=== PATIENT | male | born 1945 | race Caucasian/White ===

== ENCOUNTER → 2017-02-26 | Outpatient (CLI) | payer OTHER | LOC: CIMAGING 10:51 | PROVIDERS: ATTEND Internal Medicine | DX: M19.031 Primary osteoarthritis, right wrist (principal); M11.231 Other chondrocalcinosis, right wrist | CPT/HCPCS: 73110-PO ==

== ENCOUNTER → 2018-10-11 | Outpatient (CLI) | payer OTHER | LOC: CIMAGING 09:33 | PROVIDERS: ATTEND Internal Medicine | DX: R60.9 Edema, unspecified (principal) | CPT/HCPCS: 93971-PO ==

== ENCOUNTER 2018-11-19 09:33 | Inpatient (IN) | payer OTHER ==
[2018-11-19] MEDS ORDERED: IPRATROPIUM/ALBUTEROL 3 ML DEYVIAL IH ONE (10:01)
[2018-11-19] MEDS ORDERED: IPRATROPIUM/ALBUTEROL 3 ML DEYVIAL ONE (10:02)
[2018-11-19] MEDS ORDERED: methylPREDNISolone SOD SUCC 125 MG/2 ML VIAL IVP ONE (10:03)
--- NOTE | 2018-11-19 10:16 | EDPHY ---
H & P Stated Complaint: cough for a few days and SOB since last night Time Seen by Provider: 11/19/18 09:46 HPI/ROS: This patient complains of dyspnea that he states came on abruptly last night about 8:00 p.m after coughing for few days without significant dyspnea. He feels that this episode of shortness of breath is a bit different than his typical asthma and that he feels more short of breath than usual. He describes increasing severe dyspnea with achiness in his chest that he attributes to labored breathing/increased work of breathing. He also has occasional cough productive of thin but slightly discolored sputum over the past week. His has the impression that he avoids coughing because of associated pain from longstanding umbilical hernia when he does cough. The there is no increased from baseline from this mild pain from the hernia. In October he had a negative Doppler ultrasound early in the month for all leg swelling and has noticed any recent leg swelling since then. He describes of subjective fever last night a been no documented fevers however at home-have not checked the temperature at home. He was sent to the emergency department from his internal medicine physician after brief evaluation concerned that he was having an asthma exacerbation episode warranted treatment. ROS: Constitutional: As per HPI. No high fevers or chills HEENT: URI symptoms earlier in the week of since resolved. No significant nasal congestion currently. No sinus pain. Pulmonary: No hemoptysis. He denies orthopnea. He denies overt pleuritic pain , describing achiness instead. Cardiovascular: No heart palpitations or lightheadedness. No lower extremity swelling or calf pain. GI: Longstanding umbilical hernia persist despite 5 hernia surgeries. However he denies any change in the baseline mild discomfort at the hernia site and mild bulge. He said loss of appetite over the past 24 hr. His last meal was dinner last night. He did not take his medications this morning. No nausea or vomiting. : No complaints Integumentary: No skin rash or diaphoresis Neuro: No complaints 10 point review of symptoms is performed and otherwise negative with exception of pertinent positives and negatives listed in HPI and ROS Source: Patient Exam Limitations: No limitations - Medical/Surgical History Hx Asthma: Yes Hx Chronic Respiratory Disease: No Hx Diabetes: Yes Hx Cardiac Disease: No Hx Renal Disease: No Hx Cirrhosis: No Hx Alcoholism: No Hx HIV/AIDS: No Hx Splenectomy or Spleen Trauma: No Other PMH: med hx-diabetes,gout,severe lumbar degen disc disease,chronic venous insufficiency,depression,GERD.sleep apnea,[place], hernia, asthma - Family History Significant Family History: No pertinent family hx - Social History Smoking Status: Former smoker Alcohol Use: None Drug Use: None - Physical Exam Exam: General Appearance: Alert, no distress. Eyes: Pupils equal and round no pallor or injection. ENT, Mouth: Mucous membranes moist. Respiratory: Increased work of breathing with tachypnea. Minimal expiratory wheeze currently. No rales or rhonchi appreciated. Cardiovascular: Borderline tachycardia with no murmur gallop rub. No peripheral edema. No leg tenderness or swelling Gastrointestinal: Abdomen is soft and nontender, no masses, bowel sounds normal. Neurological: GCS 15 Skin: Warm and dry, no rashes. Musculoskeletal: Neck is supple nontender. Extremities are symmetrical, full range of motion. Psychiatric: Mood and affect normal exception of mild anxiety attributable to his dyspnea DIFFERENTIAL DIAGNOSIS: After history and physical exam differential diagnosis was considered for asthma exacerbation, pulmonary embolism, myocardial ischemic disease, pneumonia Constitutional: Initial Vital Signs Temperature (C) 36.6 C 11/19/18 09:44 Heart Rate 99 11/19/18 09:44 Respiratory Rate 22 H 11/19/18 09:44 Blood Pressure 158/82 H 11/19/18 09:44 O2 Sat (%) 90 L 11/19/18 09:44 O2 Delivery Mode Nasal Cannula O2 (L/minute) 2 Allergies/Adverse Reactions: clindamycin Allergy (Intermediate, Verified 11/19/18 09:44) Rash Home Medications: Medication Instructions Recorded Albuterol Hfa Anes Only [Proair 11/19/18 Hfa Icu (*)] Allopurinol [Allopurinol 300 MG 11/19/18 (RX)] Atorvastatin Calcium [Lipitor 20 11/19/18 mg (*)] Baclofen [Baclofen 10 mg (*)] 11/19/18 DULoxetine [Cymbalta 60 MG (*)] 11/19/18 Fluticasone/Salmeter 250/50Mcg 1 puffs IH BID 11/19/18 [Advair 250/50 (*)] Furosemide [Lasix 40 MG (*)] 11/19/18 Insulin Glargine,Hum.rec.anlog 11/19/18 [Basaglar Kwikpen U-100] Losartan Potassium [Cozaar 50 mg 11/19/18 (*)] Metformin HCl [Metformin 1000 mg] 11/19/18 Morphine Sulfate in 0.9 % NaCl 11/19/18 [Morphine 30 mg/30 ml-0.9% NaCl] Naloxegol Oxalate [Movantik] 11/19/18 Zolpidem Tartrate [Ambien] 11/19/18 oxyCODONE CR [Oxycontin] 11/19/18 Medical Decision Making - Diagnostics EKG Interpretation: 12 lead EKG performed shortly after arrival at 10:09 a.m. Indication dyspnea rule out myocardial ischemic disease or other Sinus tachycardia 104 Intervals: P R of 191, QRS of 87, QTC of 442 [place]: P of 31, QRS of -25, T of [address] segments: Normal throughout Overall assessment- sinus tachycardia with borderline left axis deviation Imaging Results: Imaging Impressions Chest X-Ray 11/19/18 10:02 Impression: 1. Left lower lobe pneumonia. 2. Large hiatal hernia. 3. COPD. 4. No pneumothorax. 5. Recommend follow up until clear. Two view chest x-ray reveals left lower lobe infiltrate and airway disease consistent with influenza pneumonia by my interpretation Imaging: I viewed and interpreted images myself ED Course/Re-evaluation: DuoNeb, IV, Solu-Medrol IV followed by 2 albuterol nebs with improvement in his dyspnea. Wheeze persists. O2 requirement persists. Review of chest x-ray reveals left lobe low infiltrate with airway disease consistent with pneumonia by my interpretation This labs are notable for leukocytosis white count of 11, basic metabolic panel revealing mild hyperglycemia with glucose of 228 otherwise normal, troponin normal, venous lactate added on after finding of pneumonia and that value is elevated to 3.12 POC lactate. Tamiflu 75 mg p.o. 2 L saline bolus initiated & ceftriaxone 1 g IV Zithromax 500 mg p.o. Repeat POC lactate performed at noon is 2.27 After most of the 1st L in. I counseled patient and regarding need for admission and they agree to plan for admission to [facility]. I spoke with Sandrita Gallo, with hospitalist service who accepts the patient to Dr. Brothers At 11:25 a.m. What recheck patient has an O2 sat of 92% on 3 L nasal cannula. Increase this to 4 L nasal cannula with commensurate increase in O2 sat. The patient is comfortable at this time. Discussion: This patient rules in for severe sepsis the setting of influenza pneumonia with positive lactate. Despite this he is responding well to treatment of his asthma and is been hemodynamically stable without evidence of septic shock while here in the emergency department. Total bedside critical care time: 20 min - Data Points Laboratory Results: 11/19/18 11/19/18 11/19/18 11:58 11:07 10:19 POC Sodium 136 mEq/L mEq/L (135-145) POC Potassium 3.7 mEq/L mEq/L (3.3-5.0) POC Chloride 98.0 mEq/L mEq/L (97-110) POC Total CO2 24 mEq/L mEq/L (22-31) POC BUN 10 mg/dL mg/dL (7-23) POC Creatinine 0.7 mg/dL mg/dL (0.7-1.3) POC Glucose 228 mg/dL H mg/dL (70-100) POC Lactic Acid Luther 2.3 mmol/L H D mmol/L 3.1 mmol/L H mmol/L (0.7-2.1) (0.7-2.1) POC Calcium 9.1 mg/dL mg/dL (8.5-10.4) POC Troponin I 11/19/18 10:19 POC Sodium POC Potassium POC Chloride POC Total CO2 POC BUN POC Creatinine POC Glucose POC Lactic Acid Luther POC Calcium POC Troponin I 0.02 ng/mL ng/mL (0.00-0.08) Medications Given: Discontinued Medications Albuterol (Proventil Neb) 3 ml IH EDNOW ONE Stop: 11/19/18 10:29 Last Admin: 11/19/18 10:33 Dose: 3 ml Albuterol (Proventil Neb) 3 ml IH EDNOW ONE Stop: 11/19/18 10:30 Last Admin: 11/19/18 10:33 Dose: 3 ml Albuterol/Ipratropium (Duoneb) 3 ml IH EDNOW ONE Stop: 11/19/18 10:02 Last Admin: 11/19/18 10:08 Dose: 3 ml Azithromycin (Zithromax) 500 mg PO EDNOW ONE PRN Reason: Protocol Stop: 11/19/18 11:33 Last Admin: 11/19/18 11:50 Dose: 500 mg Ceftriaxone Sodium/Dextrose (Rocephin 1 Gm (Premix)) 50 mls @ 100 mls/hr IV EDNOW ONE PRN Reason: Protocol Stop: 11/19/18 11:25 Last Admin: 11/19/18 11:05 Dose: 50 mls Sodium Chloride (Ns) 1,000 mls @ 0 mls/hr IV ONCE ONE; Wide Open PRN Reason: Protocol Stop: 11/19/18 11:13 Last Admin: 11/19/18 11:15 Dose: 1,000 mls Insulin Human NPH (Humulin N Syringe) 30 units SC EDNOW ONE Stop: 11/19/18 10:44 Last Admin: 11/19/18 10:52 Dose: Not Given Insulin Human Regular (Humulin R) 6 unit SC EDNOW ONE Stop: 11/19/18 10:56 Last Admin: 11/19/18 11:15 Dose: Not Given Metformin HCl (Glucophage) 1,000 mg PO ONCE ONE Stop: 11/19/18 10:43 Last Admin: 11/19/18 10:52 Dose: Not Given Methylprednisolone Sodium Succinate (Solu-Medrol) 125 mg IVP EDNOW ONE Stop: 11/19/18 10:04 Last Admin: 11/19/18 10:16 Dose: 125 mg Oseltamivir Phosphate (Tamiflu) 75 mg PO EDNOW ONE Stop: 11/19/18 10:49 Last Admin: 11/19/18 10:56 Dose: 75 mg Point of Care Test Results: CBC CBC Collection Date 11/19/18 CBC Collection Time 10:15 WBC 11.0 RBC 4.83 HGB 15.3 HCT 44.1 PLT 169 Neut # 9.6 Neut 87.8 LYMPH # 0.8 LYMPH 6.9 Other WBC # 0.6 Other WBC 5.3 MCV 91.3 Chemistry 11/19/18 11/19/18 10:19 10:19 POC Sodium 136 mEq/L mEq/L (135-145) POC Potassium 3.7 mEq/L mEq/L (3.3-5.0) POC Chloride 98.0 mEq/L mEq/L (97-110) POC Total CO2 24 mEq/L mEq/L (22-31) POC BUN 10 mg/dL mg/dL (7-23) POC Creatinine 0.7 mg/dL mg/dL (0.7-1.3) POC Glucose 228 mg/dL H mg/dL (70-100) POC Calcium 9.1 mg/dL mg/dL (8.5-10.4) POC Troponin I 0.02 ng/mL ng/mL (0.00-0.08) Blood Gas/Lactic Acid-Venous 11/19/18 11/19/18 11:58 11:07 POC Lactic Acid Luther 2.3 mmol/L H D mmol/L 3.1 mmol/L H mmol/L (0.7-2.1) (0.7-2.1) Basic Metabolic Panel BMP Collection Date 11/19/18 BMP Collection Time 10:15 Influenza PCR Flu Nasal Swab Collection Date 11/19/18 Flu Nasal Swab Collection Date 11/19/18 Flu Nasal Swab Collection Time 10:20 Flu Nasal Swab Collection Time 10:20 Influenza A Result Detected Influenza B Result Not Detected Departure - Departure Disposition: Home, Routine, Self-Care Clinical Impression: Influenza A Asthma exacerbation Qualifiers: Asthma severity: severe Asthma persistence: persistent Qualified Code(s): J45.51 - Severe persistent asthma with (acute) exacerbation Pneumonia Qualifiers: Pneumonia type: due to unspecified organism Laterality: left Lung location: lower lobe of lung Qualified Code(s): J18.1 - Lobar pneumonia, unspecified organism Condition: Serious Referrals: George Dejesus MD [Primary Care Provider] - As per Instructions
[2018-11-19] MEDS ORDERED: ALBUTEROL 3 ML DEYVIAL IH ONE ×3 (10:28→12:11)
[2018-11-19] MEDS ORDERED: metFORMIN HCL 500 MG TAB PO ONE (10:42)
[2018-11-19] MEDS ORDERED: INSULIN NPH HUMAN 100 UNITS/ML SYR SC ONE (10:43)
[2018-11-19] MEDS ORDERED: OSELTAMIVIR PHOSPHATE 75 MG CAP PO ONE (10:48)
[2018-11-19] MEDS ORDERED: INSULIN REGULAR HUMAN 100 UNIT/ML UNIT SC ONE (10:55)
[2018-11-19] MEDS ORDERED: NS 1,000 ML IV ONE ×2 (11:12→12:03)
[2018-11-19] MEDS ORDERED: AZITHROMYCIN 250 MG TAB PO ONE (11:32)
--- NOTE | 2018-11-19 15:26 | CPEKG ---
Test Reason : OPEN Blood Pressure : / mmHG Vent. Rate : 104 BPM Atrial Rate : 104 BPM P-R Int : 191 ms QRS Dur : 087 ms QT Int : 336 ms P-R-T Axes : 031 -25 047 degrees QTc Int : 442 ms Sinus tachycardia Borderline left axis deviation Confirmed by Lakhwinder Aguilera ([id number]) on 11/19/2018 3:25:27 PM Referred By: Confirmed By:Lakhwinder Aguilera
[2018-11-19] MEDS ORDERED: D50W 25 GM/50 ML SYR IVP PRN (15:39)
[2018-11-19] MEDS ORDERED: ACETAMINOPHEN 325 MG TAB PO PRN (15:41)
[2018-11-19] MEDS ORDERED: ALBUTEROL 3 ML DEYVIAL IH PRN (15:41)
[2018-11-19] MEDS ORDERED: oxyCODONE IR 5 MG TAB PO PRN (15:41)
[2018-11-19] MEDS ORDERED: ONDANSETRON DISINTEGRATING 4 MG TAB PO PRN (15:41)
[2018-11-19] MEDS ORDERED: HYDROmorphONE/DILAUDID 1 MG/ML INJ IVP PRN (15:41)
[2018-11-19] MEDS ORDERED: HYDROCODONE/APAP 5/325 TAB PO PRN (15:41)
[2018-11-19] MEDS ORDERED: ONDANSETRON 4 MG/2 ML VIAL IVP PRN (15:41)
[2018-11-19] MEDS ORDERED: NS 1,000 ML IV SCH (15:45)
--- NOTE | 2018-11-19 15:47 | PDGENHP ---
History and Physical - Chief Complaint Dyspnea - History of Present Illness 73 yo male complaining of dyspnea that he states came on abruptly last night about 8:00 p.m after coughing for few days without significant dyspnea. He feels that this episode of shortness of breath is a bit different than his typical asthma and that he feels more short of breath than usual. He describes increasing severe dyspnea with achiness in his chest that he attributes to labored breathing/increased work of breathing. He also has occasional cough productive of thin but slightly discolored sputum over the past week. He was sent to the emergency department from his internal medicine physician after brief evaluation concerned that he was having an asthma exacerbation episode warranted treatment. In the ER he is noted to require 4 L of O2. CXR shows a LLL infiltrate. Lactate is elevated. He meets criteria for sepsis PMH: med hx-diabetes,gout,severe lumbar degen disc disease,chronic venous insufficiency,depression,GERD.sleep apnea,[place], hernia, asthma - Family History Significant Family History: No pertinent family hx - Social History Smoking Status: Former smoker Alcohol Use: None Drug Use: None Chest X-Ray 11/19/18 10:02 Impression: 1. Left lower lobe pneumonia. 2. Large hiatal hernia. 3. COPD. 4. No pneumothorax. 5. Recommend follow up until clear. History Information - Allergies/Home Medication List Allergies/Adverse Reactions: clindamycin Allergy (Intermediate, Verified 11/19/18 09:44) Rash Home Medications: Albuterol Sulfate [Proair Hfa] 1 - 2 puffs IH Q4H PRN 11/19/18 [Last Taken Unknown] Allopurinol [Allopurinol 300 MG (RX)] 300 mg PO DAILY 11/19/18 [Last Taken Unknown] Atorvastatin Calcium [Lipitor 20 mg (*)] 20 mg PO DAILY 11/19/18 [Last Taken Unknown] Baclofen [Baclofen 10 mg (*)] 10 mg PO HS 11/19/18 [Last Taken Unknown] DULoxetine [Cymbalta 60 MG (*)] 60 mg PO DAILY 11/19/18 [Last Taken Unknown] Fluticasone/Salmeter 250/50Mcg [Advair 250/50 (*)] 1 puffs IH HS 11/19/18 [Last Taken Unknown] Furosemide [Lasix 40 MG (*)] 40 mg PO DAILY PRN 11/19/18 [Last Taken Unknown] Insulin Glargine,Hum.rec.anlog [Basaglar Kwikpen U-100] 33 units SQ HS 11/19/18 [Last Taken Unknown] Losartan Potassium [Cozaar 50 mg (*)] 50 mg PO BID 11/19/18 [Last Taken Unknown] Metformin HCl [Metformin 1000 mg] 11/19/18 [Last Taken Unknown] Morphine Sulfate in 0.9 % NaCl [Morphine 30 mg/30 ml-0.9% NaCl] 11/19/18 [Last Taken Unknown] Naloxegol Oxalate [Movantik] 25 mg PO DAILY@1500 11/19/18 [Last Taken Unknown] Zolpidem Tartrate [Ambien] 11/19/18 [Last Taken Unknown] oxyCODONE CR [Oxycontin] 11/19/18 [Last Taken Unknown] I have personally reviewed and updated: medical history, social history - Social History Smoking Status: Former smoker Alcohol Use: None Drug Use: None Review of Systems Review of Systems: ROS: 10pt was reviewed & negative except for what was stated in HPI & below Physical Exam Physical Exam: Temp Pulse Resp BP Pulse Ox 36.6 C 93 18 148/81 H 94 11/19/18 12:57 11/19/18 12:57 11/19/18 12:57 11/19/18 12:57 11/19/18 12:57 O2 (L/minute) 4 Constitutional: no apparent distress Eyes: EOMI Ears, Nose, Mouth, Throat: dry mucous membranes Cardiovascular: regular rate and rhythym, No edema Respiratory: reduced air movement, expiratory wheeze Gastrointestinal: normoactive bowel sounds Skin: warm Musculoskeletal: generalized weakness Neurologic: AAOx3 Psychiatric: interacting appropriately, not anxious, not encephalopathic Lymph, Heme, Immunologic: No petechiae Lab Data & Imaging Review POC Sodium 136 mEq/L (135-145) 11/19/18 10:19 POC Potassium 3.7 mEq/L (3.3-5.0) 11/19/18 10:19 POC Chloride 98.0 mEq/L (97-110) 11/19/18 10:19 POC Total CO2 24 mEq/L (22-31) 11/19/18 10:19 POC BUN 10 mg/dL (7-23) 01/11/19 10:19 POC Creatinine 0.7 mg/dL (0.7-1.3) 11/19/18 10:19 POC Glucose 228 mg/dL (70-100) H 11/19/18 10:19 POC Lactic Acid Luther 2.3 mmol/L (0.7-2.1) H D 11/19/18 11:58 POC Calcium 9.1 mg/dL (8.5-10.4) 11/19/18 10:19 POC Troponin I 0.02 ng/mL (0.00-0.08) 11/19/18 10:19 Assessment & Plan Assessment: #Query sepsis with elevated lactate, increased RR, and source of infection. I dont see a CBC that was checked #LLL pneumonia per CXR #Asthma exacerbation (Acute) #Influenza A (Acute) -This is reported per the ER record but I dont see any report the test actually done or reported -will obtain viral studies -for now continue Tamiflu while waiting for results #Dehydration #Acute Respiratory failure, due to pneumonia, asthma #IDDM #TRINA Plan: Admit Cont IVF cont Abx Cont antiviral for now check Resp PCR Scheduled/PRN nebs home meds as appropriate ISS F/u BCx total critical care time is 50 minutes
[2018-11-19] MEDS: INSULIN LISPRO 100 UNIT/ML SC SCH (16:29)
[2018-11-19 16:31] LABS: PLATELET COUNT 152 10^3/uL (150-400)
[2018-11-19] MEDS: IPRATROPIUM/ALBUTEROL 3 ML DEYVIAL IH SCH ×2 (16:58→20:22)
[2018-11-19] MEDS ORDERED: ZOLPIDEM TARTRATE 5 MG TAB PO PRN (17:23)
[2018-11-19] MEDS: OSELTAMIVIR PHOSPHATE 75 MG CAP PO SCH (17:51)
--- NOTE | 2018-11-19 17:54 | PDMN ---
Medical Necessity Medical necessity: [facility] [place] M60 asthma , [id number]: A-1 day: inpt for poss sepsis, elevated lactate ( 3.1) , increased RR, - influenza A +, dehydration, LLL PNA per CXR, O2 93-94% on 3-4 L.,. PMHX DM, TRINA, gout, severe Lumbar DDD, chronic venous insufficiency, depression, GERD, [place] , hernia, asthma, anticipate > 2 MN ongoing med nec care, further monitoring , eval, and tx
[2018-11-19] MEDS: FLUTICASONE/SALMETER 250/50MCG DISKUS IH SCH (20:22)
[2018-11-19] MEDS: Insulin Glargine,Hum.Rec.Anlog [Basaglar Kwikpen U-100] SQ SCH (21:27)
[2018-11-19] MEDS: methylPREDNISolone SOD SUCC 125 MG/2 ML VIAL IVP SCH (21:28)
[2018-11-19] MEDS: morphINE SR 30 MG TAB PO SCH (21:29)
[2018-11-19] MEDS: BACLOFEN 10 MG TAB PO SCH (23:40)
[2018-11-20] MEDS: IPRATROPIUM/ALBUTEROL 3 ML DEYVIAL IH SCH ×4 (06:00→21:21)
[2018-11-20] MEDS: OSELTAMIVIR PHOSPHATE 75 MG CAP PO SCH ×2 (08:34→17:39)
[2018-11-20] MEDS: INSULIN LISPRO 100 UNIT/ML SC SCH (08:34)
[2018-11-20] MEDS: ALLOPURINOL 300 MG TAB PO SCH (08:36)
[2018-11-20] MEDS: morphINE SR 30 MG TAB PO SCH ×2 (08:36→21:43)
[2018-11-20] MEDS: ATORVASTATIN CALCIUM 20 MG TAB PO SCH (08:37)
[2018-11-20] MEDS: DULoxetine 60 MG CAP PO SCH (08:37)
[2018-11-20] MEDS: methylPREDNISolone SOD SUCC 125 MG/2 ML VIAL IVP SCH (08:38)
[2018-11-20] MEDS: ENOXAPARIN 40 MG/0.4 ML SYR SC SCH (08:39)
[2018-11-20] MEDS ORDERED: AZITHROMYCIN 250 MG TAB PO SCH (09:00)
--- NOTE | 2018-11-20 09:29 | ASMTCMCOM ---
CM Note CM Note Notes: Patient admitted with Influenza A, LLL PNA, and asthma exacerbation. He is normally independent. Lives with . PT has been ordered. I do not anticipate any d/c needs, but Case Management available if this changes. Date Signed: 11/20/2018 09:29 AM Electronically Signed By:Mona Warren RN
--- NOTE | 2018-11-20 11:13 | HOSPPROG ---
Hospitalist Progress Note Assessment/Plan: 73-year-old man with a history of asthma comes in with increasing dyspnea. He went to to see his primary care provider and was sent downstairs to the emergency department for further evaluation where they diagnosed him with influenza a and acute asthma exacerbation. Additionally his chest x-ray did show a left lower lobe infiltrate consistent with bacterial pneumonia # acute asthma exacerbation with acute hypoxic respiratory failure * Continue steroids and nebulizers * Consider switching to Prednisone in the a.m. * Okay to transition to med surge today # influenza a, continue Tamiflu # left lower lobe pneumonia noted on chest x-ray consistent with bacterial pneumonia. Will treat with ceftriaxone and Zithromax. # diabetes: Insulin-dependent will increase his sliding scale to account for his steroids. Main also need to increase his long-acting if his sugars remain elevated # lumbar disc the disease # history of depression # sleep apnea # venous insufficiency # DVT prophylaxis on low-molecular heparin Subjective: Patient new to me and chart reviewed. Feeling much improved today with decrease shortness of breath but still requiring oxygen. Discussed in rounds in the ICU Objective: Vital Signs Temp Pulse Resp BP Pulse Ox 36.6 C 69 14 112/57 L 97 11/20/18 08:00 11/20/18 08:00 11/20/18 08:00 11/20/18 08:00 11/20/18 08:00 Laboratory Results 11/19/18 16:00 11/19/18 11/20/18 11/21/18 05:59 05:59 05:59 Intake Total 5150 Output Total 1150 Balance 4000 - Physical Exam Constitutional: not in pain Eyes: PERRL, EOMI Ears, Nose, Mouth, Throat: moist mucous membranes Cardiovascular: regular rate and rhythym Respiratory: clear to auscultation, reduced air movement, respiratory distress Gastrointestinal: soft, non-tender abdomen Genitourinary: no bladder fullness Skin: warm Musculoskeletal: no joint effusions Neurologic: AAOx3 Psychiatric: interacting appropriately, not anxious ICD10 Worksheet Patient Problems: Problems Problem Status Onset Asthma exacerbation Acute Influenza A Acute Pneumonia Acute
[2018-11-20] MEDS: predniSONE 20 MG TAB PO SCH (11:59)
[2018-11-20] MEDS: INSULIN REGULAR HUMAN 100 UNIT/ML UNIT SC SCH ×3 (12:54→21:38)
[2018-11-20] MEDS ORDERED: Naloxegol Oxalate [Movantik] 25 MG PO SCH (15:00)
[2018-11-20] MEDS: FLUTICASONE/SALMETER 250/50MCG DISKUS IH SCH (21:21)
[2018-11-20] MEDS: Insulin Glargine,Hum.Rec.Anlog [Basaglar Kwikpen U-100] SQ SCH (21:38)
[2018-11-20] MEDS: BACLOFEN 10 MG TAB PO SCH (21:44)
--- NOTE | 2018-11-20 23:19 | GCON ---
PULMONARY CRITICAL CARE CONSULTATION DATE OF CONSULTATION: 11/20/2018 REASON FOR CONSULTATION: Pneumonia, asthma. HISTORY OF PRESENT ILLNESS: The patient is a very pleasant 73-year-old gentleman who was admitted ye sterday with increasing shortness of breath. He had the onset of fever and chills about a week ago. This resolved. Two days ago, he began to have increasing difficulty breathing with chest tightness and shortness of breath. He had some cough, but tried to suppress this secondary to a ventral hernia . He was bringing up some mucus. He has had some associated fevers and chills. He presented to [facility] in [place] yesterday, sent there by his primary care physician. Influenza A was positive. Chest x-ray showed bilateral pulmonary infiltrates, left greater than right. Oxygen saturation was borderline. He was initially afebrile. He was given nebulized treatments and started on Tamiflu an d azithromycin. He was also given Solu-Medrol. Oxygen was administered. He was transferred to the intensive care unit at [place] on step-down status. PAST MEDICAL HISTORY: Remarkable for a ventral hernia with attempted surgical repair x5 by his repor t. He has gastroesophageal reflux disease and a large hiatal hernia. There is a history of type 2 d iabetes, gout, lumbar disk disease, venous insufficiency of the lower extremities requiring Lasix, sl eep apnea, and depression. He has had asthma since childhood. He smoked minimally from [age]atel y [age] and does not have COPD. SOCIAL HISTORY: The patient is . Tobacco is as noted above. Alcohol is negative. He is ret ired. His is here with him. FAMILY HISTORY: Noncontributory. REVIEW OF SYSTEMS: A 10-point review of systems is negative except as noted above. There is no hist ory of heart disease, no history of thromboembolic disease. DRUG ALLERGIES: Clindamycin. PHYSICAL EXAMINATION: GENERAL APPEARANCE: Reveals a very pleasant gentleman who is sitting up in th e chair. He is hard of hearing. VITAL SIGNS: Oxygen is in place by nasal cannula at 2 L. Saturati ons are 96%. Respiratory rate is 16. Blood pressure is 120/65, heart rate 65 with sinus rhythm on t he monitor. HEENT/NECK: Unremarkable for lymphadenopathy or thyromegaly. There is no jugular venou s distention. PULMONARY: The chest reveals decreased breath sounds bilaterally. There are a few ex piratory wheezes present with some central bronchial congestion/mild rhonchi. Rales are present at t he bases with some bronchial changes at the left base. HEART: Regular in rate and rhythm. There is soft systolic murmur, no gallop. P2 appears to be normal. ABDOMEN: Remarkable for a large ventral hernia. Bowel sounds are present. There is no significant tenderness. GENITOURINARY: No Masters ca theter is in place. He is using the urinal. Intake with fluid resuscitation following admission is approximately 5 L with approximately 1 L out so far. There is bilateral 1+ pitting edema with some c hronic lower extremity skin changes. NEUROLOGIC: Examination is within normal limits. DATABASE: Chest x-ray shows bibasilar infiltrates left greater than right. Cardiac silhouette appea rs to be slightly enlarged. A hiatal hernia with air in the stomach appears to be present. There is no evidence of congestive heart failure. LABORATORY: White blood cell count is 8600, hematocrit 43.7. Platelets are normal. Blood lactate o n admission was 3.1 with a repeat of 2.3. Troponin is negative. Sodium 136, potassium 3.7, BUN 10, with a creatinine 0.7. Glucoses are elevated, running between 210 and 290. Blood cultures were draw n and are pending. No sputum culture was obtained. ASSESSMENT: 1. Pneumonia. The patient is positive for influenza. Chest x-ray is more suggestive of a bacterial pneumonia with a dense left lower lobe infiltrate present and a smaller infiltrate present at the me dial right base. Blood cultures are pending. He is on cefepime and azithromycin. With his clinical improvement since admission, I think he can be transitioned to oral Levaquin alone to cover for comm unity-acquired pneumonia. He does have asthma as outlined below and bronchodilator therapies will be continued. 2. Asthma. His infection is associated with increased asthma. However, he is not significantly tig ht. He does have what appears to be a minor exacerbation. He does have some wheezing. He is being treated appropriately with inhaled therapies and steroids. The latter can be reduced at this point. Bronchodilator treatments and Advair need to be continued. 3. Sepsis. Resolving. Blood pressures have been fine. Lactate was marginally elevated. Aggressiv e intravenous fluid replacement does not need to be continued. 4. History of other medical problems as outlined above, overall stable. 5. Type 2 diabetes with hyperglycemia. He is on sliding scale insulin as well as long-acting insuli n which he takes at home. Metformin can be restarted. PLAN AND RECOMMENDATIONS: The patient can be transferred to a medical-surgical bed. Antibiotics rochelle l be changed to Levaquin. Bronchodilator treatments will be continued. Steroids will be reduced to prednisone at 40 mg per day for now. His usual medications will be continued. He will be followed c losely. Enoxaparin will be continued for DVT prophylaxis while in the hospital. GI prophylaxis is n ot indicated as he is eating. Further plans and recommendations will be made based on his progress over the next 12-24 hours. 11/20 /[id number]/MODL
[2018-11-21] MEDS: IPRATROPIUM/ALBUTEROL 3 ML DEYVIAL IH SCH ×2 (05:55→12:04)
[2018-11-21] MEDS: morphINE SR 30 MG TAB PO SCH (09:32)
[2018-11-21] MEDS: OSELTAMIVIR PHOSPHATE 75 MG CAP PO SCH (09:32)
[2018-11-21] MEDS: INSULIN REGULAR HUMAN 100 UNIT/ML UNIT SC SCH ×2 (09:32→12:48)
[2018-11-21] MEDS: ALLOPURINOL 300 MG TAB PO SCH (09:32)
[2018-11-21] MEDS: DULoxetine 60 MG CAP PO SCH (09:32)
[2018-11-21] MEDS: ATORVASTATIN CALCIUM 20 MG TAB PO SCH (09:32)
[2018-11-21] MEDS: predniSONE 20 MG TAB PO SCH (09:32)
[2018-11-21] MEDS: ENOXAPARIN 40 MG/0.4 ML SYR SC SCH (09:36)
[2018-11-21 11:41] VITALS: BP 160/98
--- NOTE | 2018-11-21 12:24 | ASMTCMCOM ---
CM Note CM Note Notes: Case Management Chart Review for Discharge Support: Patient assessed by PT who is recommending discharge to home. CM discussed with MAGEN Norman, plan continues to be discharge home independent. CM available to follow. D/C Plan: Independent. Date Signed: 11/21/2018 12:24 PM Electronically Signed By:Reshma Garcia
--- NOTE | 2018-11-21 13:24 | ASMTDCNOTE ---
Case Management Discharge Discharge Order Complete? Answers: Yes Patient to Obtain Answers: via Family [facility] Transportation Arranged Answers: Family/Friends Family Notified Answers: Yes Discharge Comments Notes: Patient received discharge orders. CM met with patient and family who will transport patient home. IM delivered and signed for receipt. Patient states he does not have questions for CM. CM available to follow if any additional needs arise. Date Signed: 11/21/2018 01:23 PM Electronically Signed By:Reshma Garcia
--- NOTE | 2018-11-21 16:29 | GDS ---
DIAGNOSES: 1. Influenza A. 2. Left lower lobe pneumonia, likely bacterial. 3. Reactive airways exacerbation. 4. Acute respiratory failure with acute hypoxic respiratory failure with increased work of breathing , resolved. 5. Diabetes with elevated blood sugars during his acute hospital stay. 6. Lumbar disk disease. 7. History of depression. 8. Obstructive sleep apnea. 9. Venous insufficiency. CONSULTATIONS: Dr. Louie Perdue, Pulmonology. HOSPITAL COURSE: The patient is a 73-year-old with a history of asthma who comes in with fevers, inc reased shortness of breath, and cough. Evaluation, included a chest x-ray, which showed a consolidat ed left lower lobe pneumonia, as well as a positive influenza swab. He was admitted to the step-down unit given his severe hypoxia and work of breathing and started on Tamiflu and antibiotics for commu nity-acquired pneumonia. He was also started on Solu-Medrol and nebulizers, and over the course of h is hospital stay, his symptoms improved markedly. Unfortunately, his diabetes became more uncontroll ed after starting on the steroids. He will increase his long-acting insulin on the short-term while he finishes his steroid taper. Likely he will go back to his usual dose once he is over this acute i llness and off the steroids. CONDITION ON DISCHARGE: Good. PHYSICAL EXAMINATION: VITAL SIGNS: He is saturating at 91% to 93% on room air, heart rate 91, blood pressure 160/90, respiratory rate is 15. GENERAL: He is alert and oriented. LUNGS: Diminished wi th occasional wheezing, but much improved from yesterday. DISCHARGE MEDICATIONS: Please see discharge medication form. He will be discharged on a short predn isone taper, as well as Tamiflu and Levaquin. FOLLOWUP INSTRUCTIONS: He needs to follow up with Dr. Dejesus this week. If he continues to have wheez ing and shortness of breath, he may want to extend his prednisone taper. Total time spent with patient on day of discharge and coordination of care is 35 minutes. /[id number]/MODL
--- NOTE | 2018-11-25 10:11 | PQFORM ---
PHYSICIAN QUERY FORM Needs Your Response This query form is being sent to you to assure this patient record is coded properly. Please respond to the question below: AB INITIO ETL DEVELOPER QUESTION: Dr Keen There were a few notations of Sepsis, (Sepsis, presumed Sepsis and sepsis resolved) documented in the record but no mention of Sepsis in the Discharge Summary. Just to clarify - did this patient have Sepsis? ___ Yes ___ No ___ Other (Please Specify ) ___x Unable to determine Thank You DEXTER Documentation Liaison INSTRUCTIONS FOR RESPONSE: Answer question by clicking on the "Edit Document" button. Move cursor to area below the stars. When complete, hit "Save." Click on the "Sign" button, then click "Sign" again. Type in your PIN and hit "Enter." MTDD
== END 2018-11-21 14:01 | disposition home or self-care (01) | DRG 193 ==
LOC: CED 09:33 → CEDHOLD 11:18 → F2N 14:09 → F3E 11-20 18:26
PROVIDERS: ADMIT Family Medicine; ATTEND Family Medicine
DX: J10.08 Influenza due to other identified influenza virus with other specified pneumonia (principal); J15.9 Unspecified bacterial pneumonia; J96.01 Acute respiratory failure with hypoxia; J45.901 Unspecified asthma with (acute) exacerbation; E11.65 Type 2 diabetes mellitus with hyperglycemia; T38.0X5A Adverse effect of glucocorticoids and synthetic analogues, initial encounter; E86.0 Dehydration; K21.9 Gastro-esophageal reflux disease without esophagitis; G47.33 Obstructive sleep apnea (adult) (pediatric); M10.9 Gout, unspecified; K42.9 Umbilical hernia without obstruction or gangrene; M51.86 Other intervertebral disc disorders, lumbar region; I87.2 Venous insufficiency (chronic) (peripheral); Z87.891 Personal history of nicotine dependence; Z79.4 Long term (current) use of insulin
CPT/HCPCS: 71046-PO; 80048-ER; 83605-ER; 84484-ER; 96365; 96375-ER; 97161-GP; J0696; J1650; J1815; J2930; J7512; J7613

== ENCOUNTER → 2018-11-30 | Outpatient (CLI) | payer OTHER | LOC: CIMAGING 15:17 | PROVIDERS: ATTEND Internal Medicine | DX: J18.9 Pneumonia, unspecified organism (principal) | CPT/HCPCS: 71046-PO ==

== ENCOUNTER → 2018-12-30 | Outpatient (CLI) | payer OTHER | LOC: CIMAGING 10:11 | PROVIDERS: ATTEND Internal Medicine | DX: J18.9 Pneumonia, unspecified organism (principal); I51.7 Cardiomegaly; K44.9 Diaphragmatic hernia without obstruction or gangrene | CPT/HCPCS: 71046-PO ==

== ENCOUNTER → 2019-01-03 | Outpatient (CLI) | payer OTHER | LOC: CIMAGING 09:32 | PROVIDERS: ATTEND Internal Medicine | DX: M79.89 Other specified soft tissue disorders (principal) | CPT/HCPCS: 93971-PO ==

== ENCOUNTER → 2019-01-12 | Outpatient (CLI) | payer OTHER | LOC: CIMAGING 10:27 | PROVIDERS: ATTEND Internal Medicine | DX: R91.8 Other nonspecific abnormal finding of lung field (principal) | CPT/HCPCS: 71250-PO ==

== ENCOUNTER → 2019-04-03 | Outpatient (CLI) | payer OTHER | LOC: SUPIMAGING 17:36 | PROVIDERS: ATTEND Nurse Practitioner Family | DX: R06.02 Shortness of breath (principal); K44.9 Diaphragmatic hernia without obstruction or gangrene ==

== ENCOUNTER → 2019-04-14 | Outpatient (CLI) | payer OTHER | LOC: CIMAGING 10:34 ==